=== PATIENT | female | born 1930 | race Caucasian/White ===

== ENCOUNTER 2016-11-20 18:25 | Observation (INO) | payer MEDICARE, OTHER ==
[2016-11-20 18:50] LABS: #Basophils 0.1 thou/uL (0.0-0.2); #Eosinphils 0.1 thou/uL (0.0-0.7); #Lymphocytes 2.5 thou/uL (1.20-3.40); #Monocytes 0.7 thou/uL (0.11-0.59); #Neutrophils 4.1 thou/uL (1.40-6.50); %Basophils 1.2 % (0.0-1.0); %Lymphocytes 33.4 % (21.0-51.0); %Monocytes 9.7 % (0.0-10.0); Hematocrit 32.6 % (36.0-47.0); Red Blood Cell (RBC) Count 3.42 mill/uL (4.20-5.40); White Blood Cell (WBC) Count 7.5 thou/uL (4.8-10.8)
[2016-11-20] MEDS ORDERED: Ondansetron HCl/PF 4 MG/2 ML Vial ONE (18:56)
[2016-11-20 18:57] LABS: Prothrombin Time 13.1 SEC (12.0-14.7)
[2016-11-20 19:11] LABS: Acetaminophen Less than 6.0 mcg/mL (10.0-30.0); Salicylate Less than 8.0 mg/dL (15.0-30.0)
[2016-11-20 19:14] LABS: ALT (SGPT) 13 U/L (8-55); AST (SGOT) 17 U/L (5-34); Alkaline Phosphatase 50 U/L (40-150); Anion Gap 20 mmol/L (10-20); BUN (Urea Nitrogen) 36 mg/dL (9.8-20.1); Bilirubin, Total 0.3 mg/dL (0.2-1.2); CK (CPK) 85 U/L (29-168); Calc. Creatinine Clearance 0 mL/min (70-130); Calcium 8.8 mg/dL (7.8-10.44); Carbon Dioxide 15 mmol/L (23-31); Chloride 109 mmol/L (98-107); Estimated GFR-MDRD 26; Globulin 2.7 g/dL (2.4-3.5); Lipase 65 U/L (8-78); Protein, Total 6.4 g/dL (6.0-8.3)
[2016-11-20 19:19] LABS: Troponin I Less than 0.010 ng/mL (< 0.028)
[2016-11-20] MEDS ORDERED: Lorazepam 2 MG/ML VIAL ONE (19:24)
[2016-11-20 21:10] LABS: Oxyhemoglobin 97.2 % (94.0-97.0); Sodium 141 mmol/L (135-148)
[2016-11-20 21:11] LABS: Mode NC; Modified Allen's Test POSITIVE; Vent NO
--- NOTE | 2016-11-20 21:12 | RAD ---
AP VIEW OF THE CHEST 11/20/16 INDICATION: Syncope and collapse. COMPARISON: None. FINDINGS: There is mild emphysematous change. There is mild cardiomegaly. Pulmonary vasculature is within norm al limits. No pleural effusion or pneumothorax is evident. No acute osseous abnormality is evident. IMPRESSION: Mild cardiomegaly. POS: [facility] [place]
[2016-11-20 21:19] LABS: Anion Gap 16 mmol/L (10-20); BUN (Urea Nitrogen) 32 mg/dL (9.8-20.1); Calc. Creatinine Clearance 0 mL/min (70-130); Calcium 8.4 mg/dL (7.8-10.44); Carbon Dioxide 19 mmol/L (23-31); Chloride 111 mmol/L (98-107); Estimated GFR-MDRD 33
--- NOTE | 2016-11-20 21:30 | PDOC.EVN ---
Event Note - Event Note Event Note: [id number] h&p dictated 1. Syncope 2. Metabolic acidosis, VANESSA 3. H/O HTN 4. H/O DM type 2 plan: see orders
[2016-11-20] MEDS ORDERED: Acetaminophen 325 MG TAB PO PRN (21:33)
[2016-11-20] MEDS ORDERED: Ondansetron HCl/PF 4 MG/2 ML Vial IVP PRN (21:33)
[2016-11-20 21:35] LABS: Bilirubin Negative (Negative); Blood, Urine Negative (Negative); Glucose, Urine (Dipstick) Negative (Negative); Ketone, Urine Trace mg/dL (Negative); Nitrite Negative (Negative); Protein, Urine (Dipstick) Negative (Neg-Trace); Urobilinogen 0.2 mg/dL (0.2-1.0)
[2016-11-20 21:40] LABS: Bacteria/HPF None Seen HPF (None Seen); Hyaline Casts/LPF 4-6 HYALINE CAST LPF (0-3 Hyaline); RBC/HPF 0-3 HPF (0-3)
[2016-11-20] MEDS ORDERED: Dextrose 50% Abboject 50 ML SYRINGE SLOW IVP PRN (21:40)
[2016-11-20] MEDS ORDERED: Dextrose 5% in Water 1,000 ML IV PRN (21:40)
[2016-11-20] MEDS ORDERED: HumaLOG 300 UNITS/3 ML VIAL SC PRN ×2 (21:40)
[2016-11-20 21:53] LABS: Troponin I 0.017 ng/mL (< 0.028)
--- NOTE | 2016-11-20 22:19 | CT ---
NONCONTRAST CT OF THE BRAIN: 11/20/16 INDICATION: 86-year-old female with syncopal episode. Patient was at a football game and had two margaritas with no water. Patient had an episode of vomiting and then got dizzy and passed out. FINDINGS: No acute infarct, hemorrhage, or hydrocephalus is present. There is mild to moderate generalized cer ebral and cerebellar atrophy. There is mild chronic small vessel white matter ischemic change. Septu m pellucidum and third ventricle are midline. Skull and extracranial soft tissues appear within norm al limits. IMPRESSION: No acute intracranial abnormality. POS: [facility]
[2016-11-20] MEDS: Sodium Chloride 0.9% 1,000 ML IV SCH (23:45)
--- NOTE | 2016-11-21 00:20 | HP ---
DATE OF ADMISSION: 11/20/2016 CHIEF COMPLAINT: Syncope. HISTORY OF PRESENT ILLNESS: Patient is an 86-year-old female with past medical history of hypertens ion, diabetes type 2, hyperlipidemia, was at a football game and the patient started feeling dizzine ss. After dizziness, she passed out. Her syncope lasted for approximately one minute. When she re gained consciousness, patient was sweating and had nausea and episode of vomiting. Denies any cheat pian, denies any palpations, denies any fever, denies any chills, had similar episode of syncope ap proximately 20 years back. Denies any dizziness at this time. Denies any headache. Denies any com plaints. Patient did drink two Kristen prior to passing out. PAST MEDICAL HISTORY: As per HPI. PAST SURGICAL HISTORY: Appendectomy, knee replacement. SOCIAL HISTORY: Denies smoking, positive for alcohol, denies any drugs. FAMILY HISTORY: Positive for heart problems. MEDICATIONS: Reviewed. REVIEW OF SYSTEMS: Constitutional: Denies any fever, denies any chills. Eyes: Vision problems. Eras: Denies hearing loss. Neck: Denies any neck pain. Cardiovascular system: S1, S2 present. Regular rate and rhythm. No murmurs, no rubs, no gallops. Respiratory system: No wheezing, no rho nchi. Breath sounds bilaterally. Gastrointestinal: Abdomen is soft, nontender, no guarding, no or ganomegaly, no masses felt. Musculoskeletal: No edema. Cranial nerves system: Positive for synco pe. Genitourinary: Denies dysuria. Integumentary: Denies any rash. All other review of systems are reviewed and are negative. PHYSICAL EXAMINATION: CONSTITUTIONAL/VITAL SIGNS: At the time of H and P performed, blood pressure is 130/80. Afebrile, respiration rate 18, pulse ox 97% on room air. GENERAL: The patient appears comfortable. HEENT: Pupils equal, round, and react. ENT: Normal. Teeth intact. Tongue is moist. NECK: Supple, no JVD. CARDIOVASCULAR: S1, S2 present. Regular rate and rhythm, no murmurs, no rubs, no gallops. RESPIRATORY SYSTEM: No wheezing, no rhonchi. Breath sounds bilaterally. GASTROINTESTINAL: Soft, nontender, no guarding, no organomegaly, no masses felt. MUSCULOSKELETAL: No edema. INTEGUMENTARY: No rashes seen. PSYCHIATRIC: Mood is appropriate at this time. GENITOURINARY: No suprapubic tenderness. LABORATORY DATA: At the time of H and P performed, white count 7.5, hemoglobin 11.1, platelet count is 225. PT 13.1, INR 1.0. D-dimer 0.53. BMP showed pH 7.35, pCO2 of 33, pO2 133, bicarbonate is 18. BMP showed sodium 142, potassium 4, chloride 111, CO2 19, BUN 32, creatinine 1.52. ASSESSMENT AND PLAN: The patient is an 86-year-old female: 1. Syncope. EKG no acute ST changes, we will check cardiac enzymes. We will check, we will place patient on telemetry. We will check 2D echo and carotid ultrasound, and we will monitor the patient closely. 2. Metabolic acidosis plus acute kidney injury, secondary to possible alcohol issues and ketones. We will monitor patient closely. We will start patient on IV fluids, repeat BMP in a.m. 3. History of hypertension. Monitor blood pressures. Continue home blood pressure meds. 4. History of diabetes type 2. Monitor blood sugars. We will do insulin sliding scale. 5. Elevated D-dimer. We will go ahead and check V/Qs to rule out any pulmonary embolism also. The case was discussed in detail with the patient.
[2016-11-21 01:08] LABS: Troponin I Less than 0.010 ng/mL (< 0.028)
[2016-11-21] MEDS: Sodium Chloride 0.9% 1,000 ML IV SCH (03:15)
[2016-11-21 05:12] VITALS: BMI 27.2
[2016-11-21 05:30] LABS: #Eosinphils 0.1 thou/uL (0.0-0.7); #Monocytes 0.7 thou/uL (0.11-0.59); #Neutrophils 3.8 thou/uL (1.40-6.50); %Basophils 0.6 % (0.0-1.0); %Eosinophils 1.7 % (0.0-10.0); %Monocytes 10.8 % (0.0-10.0); Hematocrit 29.8 % (36.0-47.0); Mean Platelet Volume 7.7 fL (7.4-10.4); Red Blood Cell (RBC) Count 3.09 mill/uL (4.20-5.40); White Blood Cell (WBC) Count 6.7 thou/uL (4.8-10.8)
[2016-11-21 05:51] LABS: Anion Gap 12 mmol/L (10-20); BUN (Urea Nitrogen) 33 mg/dL (9.8-20.1); Calc. Creatinine Clearance 41 mL/min (70-130); Calcium 8.5 mg/dL (7.8-10.44); Carbon Dioxide 21 mmol/L (23-31); Chloride 111 mmol/L (98-107); Estimated GFR-MDRD 43
[2016-11-21 08:39] VITALS: BP 118/62; TEMP 97.6
[2016-11-21] MEDS ORDERED: Heparin 5,000 UNITS/ML VIAL SC SCH (09:00)
[2016-11-21] MEDS ORDERED: Sodium Bicarbonate Tab 325 MG TAB PO SCH (09:00)
[2016-11-21] MEDS ORDERED: Famotidine 20 MG TAB PO SCH ×2 (09:00)
--- NOTE | 2016-11-21 09:12 | ULT ---
BILATERAL CAROTID DUPLEX ULTRASOUND: HISTORY: Syncope. TECHNIQUE: Fam-scale ultrasound with color-flow and spectral Doppler imaging of the extracranial carotid arter y systems is performed bilaterally. FINDINGS: There is plaque formation on either side. The peak systolic velocity in the right ICA measures 105 cm per second with an end-diastolic velocit y of 22 cm per second and a systolic ratio of 0.99. The peak systolic velocity in the left ICA measures 184 cm per second with an end-diastolic velocity of 42 cm per second and a systolic ratio of 1.63. Flow in both vertebral arteries remains antegrade. IMPRESSION: Moderate (50%-69%) stenosis involving the left internal carotid artery. POS: [facility]
--- NOTE | 2016-11-21 10:41 | DIS ---
DATE OF ADMISSION: 11/20/2016 DATE OF DISCHARGE: 11/21/2016 City call admission for Brenden from [place]. DISPOSITION: Discharged home. FINAL DIAGNOSES: Syncope; left internal carotid artery stenosis, noncritical; hypertension; diabete s mellitus type 2; chronic kidney disease 3, dyslipidemia. DISCHARGE MEDICATIONS: Zocor 40 mg a day, Repaglinide 1 mg twice a day, levothyroxine 25 mg a day, Avapro 300 mg a day, Januvia 100 mg a day, Lasix 20 mg a day, aspirin 325 mg a day. PENDING AT THE TIME OF DISCHARGE: Nothing. CODE STATUS: FULL. ALLERGIES: No known drug allergies. HOSPITAL COURSE: Patient was at a football game, was hot. She says she has had renny, she got dizzy, she fainted, she was brought to the hospital. CBC was unremarkable, 7.5 white count, 11.1 he moglobin, 225,000 platelets. Comprehensive metabolic profile showed a mild acidosis of 15 which wit h fluids keep up to 19 on the CO2. She had a creatinine of 1.85, which came up to 1.52 with fluids. Liver function tests normal. Sodium and potassium normal. Plasma alcohol 21. Because of mildly elevated D-dimer, she was scheduled for a VQ scan. She refused it. Interviewing the patient, she f eels fine. Vital signs are stable. She has got 98% sat on room air. She has no tachycardia. She has no chest discomfort, shortness of breath. Agree with her that the VQ scan is not indicated. Br ain CT revealed no abnormality. The carotid ultrasound did reveal a 50%-69% stenosis on the left, n oncritical. I have suggested that she increase her aspirin from 81 mg a day to 325. I have asked h er to see her primary care provider in 1 week for followup. No consultations were obtained. No pro cedures were obtained. As I mentioned before, code status is full.
== END 2016-11-21 11:44 | disposition home or self-care (01) ==
LOC: ERS 18:25 → 2NO 21:10
PROVIDERS: ADMIT Internal Medicine; ATTEND Internal Medicine
DX: R55 Syncope and collapse (principal); E11.22 Type 2 diabetes mellitus with diabetic chronic kidney disease; I12.9 Hypertensive chronic kidney disease with stage 1 through stage 4 chronic kidney disease, or unspecified chronic kidney disease; N18.3 Chronic kidney disease, stage 3 (moderate); E78.5 Hyperlipidemia, unspecified; I65.22 Occlusion and stenosis of left carotid artery; Z79.899 Other long term (current) drug therapy; Z90.49 Acquired absence of other specified parts of digestive tract; Z96.659 Presence of unspecified artificial knee joint
CPT/HCPCS: 70450; 71010; 80048 ×2; 80053; 80307; 82550; 82553; 82805; 83690; 83735; 83880; 84484 ×3; 85025 ×2; 85379; 85610; 85730; 93005; 93880; 94760; 96361 ×2; 96374; 96375; 99285; G0378; 36415; 81003; 81015; A4216; J1644; J2060; J2405

== ENCOUNTER 2018-07-26 09:48 | Emergency (ER) | payer MEDICARE ==
--- NOTE | 2018-07-26 10:34 | RAD ---
XR Pelvis AP STANDARD HISTORY: Fall, left hip pain FINDINGS: No fracture or dislocation is identified.
--- NOTE | 2018-07-26 10:35 | RAD ---
XR Hip Lt 2-3 View HISTORY: Fall, left hip pain FINDINGS: No fracture or dislocation is identified.
== END 2018-07-26 10:49 | disposition home or self-care (01) ==
LOC: SCSER 09:48
DX: M25.552 Pain in left hip (principal); E11.9 Type 2 diabetes mellitus without complications; E78.5 Hyperlipidemia, unspecified; I10 Essential (primary) hypertension; Z79.899 Other long term (current) drug therapy
CPT/HCPCS: 72170

== ENCOUNTER 2018-07-28 10:43 | Outpatient (CLI) | payer MEDICARE, OTHER ==
--- NOTE | 2018-07-28 12:14 | RAD ---
Exam: 2 views of the lumbosacral spine HISTORY: Low back pain and lumbar radiculopathy COMPARISON: None FINDINGS: 3 views of the lumbosacral spine shows moderate scoliotic curvature of the lumbar spine. In tervertebral discs are narrowed and moderate osteophytes are seen throughout the lumbar spine. No subluxation is seen. Moderate posterior facet arthrosis is seen in the lower lumbosacral spine. The sacroiliac joints are unremarkable. IMPRESSION: Moderate degenerative changes and scoliosis of the lumbar spine
--- NOTE | 2018-07-28 14:16 | MRI ---
LUMBAR SPINE MRI WITHOUT CONTRAST: HISTORY: Lumbar radiculopathy. Left hip pain. Back pain. FINDINGS: Pleural T2 weighted images demonstrate a leftward curvature of the lumbar spine with apex at the L2-L 3 level. There are multiple hyperintensities in the left and right renal cortex which may represent parapelvic cysts. There is appropriate T1 marrow signal intensity of the lumbar vertebrae. Vertebral body height is ma intained. There is no fracture. There is type I and type II Modic change along the right aspect of the L2-L3 disk space level. There are degenerative changes involving the left aspect of the T10-T11 disk space with type I and II Modic changes. Conus medullaris terminates at approximately the mid L1 level. T12-L1: Generalized disk bulge with mild central canal stenosis. Mild bilateral neural foraminal na rrowing. L1-L2: Desiccation with mild loss of disk space height. No significant central canal stenosis. Mil d right and moderate left foraminal narrowing. L2-L3: Desiccation with moderate loss of disk space height. Generalized disk bulge causes mild narr owing of the thecal sac. There is narrowing of the right subarticular zone secondary to facet hypert rophy and disk material. There is mass effect with partial obscuration of the traversing right L3 ne rve root. Moderate right and mild left foraminal narrowing. L3-L4: Desiccation with mild to moderate loss of disk space height. Generalized disk bulge, ligamen kg flavum thickening, and facet hypertrophy result in moderate central canal stenosis. Moderate to severe right and moderate neural foraminal narrowing. The left neural foramen is patent. L4-L5: Desiccation with moderate loss of disk space height. Broad-based disk bulge, ligamentum flav um thickening, and facet hypertrophy result in moderate central canal stenosis. There is narrowing o f both subarticular zones, left greater than right. Partial obscuration of traversing right L5 nerve root. Near-complete obscuration of the traversing L5 nerve root. Moderate right and left foraminal narrowing. L5-S1: Severe loss of disk space height. Generalized disk bulge does not cause any significant cent ral canal stenosis. There is left greater than right facet hypertrophy. Mass effect and partial obs curation of the traversing left S1 nerve root. Mild right and severe left foraminal narrowing. IMPRESSION: 1. Levoscoliosis of the lumbar spine as above. 2. Moderate central canal stenosis at L4-L5. 3. Narrowing of the subarticular zone at L4-L5 and L5-S1 as described above. 4. Multilevel neural foraminal narrowing as described. There is severe left foraminal narrowing wit h obscuration of the foraminal left L5 nerve root predominantly due to disk material. POS: [facility]
== END 2018-07-28 10:44 | disposition home or self-care (01) ==
LOC: MRI 10:43
PROVIDERS: ATTEND Neurological Surgery
DX: M47.26 Other spondylosis with radiculopathy, lumbar region (principal); M41.9 Scoliosis, unspecified; M48.061 Spinal stenosis, lumbar region without neurogenic claudication
CPT/HCPCS: 72100; 72148

== ENCOUNTER 2022-01-29 08:37 | Emergency (ER) | payer MEDICARE ==
[2022-01-29 09:36] LABS: #Eosinphils 0.2 thou/uL (0.0-0.7); #Monocytes 0.6 thou/uL (0.11-0.59); #Neutrophils 4.9 thou/uL (1.40-6.50); %Basophils 0.2 % (0.0-1.0); %Eosinophils 2.2 % (0.0-10.0); %Lymphocytes 25.6 % (21.0-51.0); %Neutrophils 64.1 % (42.0-75.0); Hemoglobin 10.3 g/dL (12.0-16.0); Mean Corpuscular HGB CONC 32.8 g/dL (32.0-36.0); Mean Corpuscular Hemoglobin 31.3 pg (27.0-31.0); Mean Corpuscular Volume 95.4 fl (78.0-98.0); Mean Platelet Volume 7.7 fL (7.4-10.4); Platelet Count 219 10x3/uL (130-400); RBC Distribution Width 13.5 % (11.5-14.5); Red Blood Cell (RBC) Count 3.29 mill/uL (4.20-5.40); White Blood Cell (WBC) Count 7.7 10x3/uL (4.8-10.8)
[2022-01-29 09:59] LABS: ALT (SGPT) 12 U/L (8-55); AST (SGOT) 19 U/L (5-34); Albumin 3.6 g/dL (3.4-4.8); Alkaline Phosphatase 68 U/L (40-110); Anion Gap 10 mmol/L (10-20); BUN (Urea Nitrogen) 21 mg/dL (9.8-20.1); Bilirubin, Total 0.5 mg/dL (0.2-1.2); Calc. Creatinine Clearance 0 mL/min (70-130); Carbon Dioxide 23 mmol/L (23-31); Chloride 107 mmol/L (98-107); Estimated GFR 54; Globulin 2.9 g/dL (2.4-3.5); Glucose 107 mg/dL (83-110); Potassium 4.2 mmol/L (3.5-5.1); Protein, Total 6.5 g/dL (5.8-8.1); Sodium 136 mmol/L (136-145)
[2022-01-29] MEDS ORDERED: Acetaminophen 325 MG TAB ONE (10:06)
[2022-01-29] MEDS ORDERED: Methyl Salicylate/Menthol 85 GM TUBE TOP SCH (10:30)
[2022-01-29 10:39] LABS: Bilirubin Negative (Negative); Blood, Urine Negative (Negative); Clarity Clear (Clear); Glucose, Urine (Dipstick) Normal (Negative); Ketone, Urine Negative (Negative); Leukocyte Negative Leu/uL (Negative); Nitrite Negative (Negative); Protein, Urine (Dipstick) Negative (Neg-Trace); Specific Gravity, Urine 1.018 (1.002-1.036); Urobilinogen Normal mg/dL (Less than 2)
== END 2022-01-29 11:45 ==
LOC: ERS 08:37
DX: S72.001A Fracture of unspecified part of neck of right femur, initial encounter for closed fracture (principal); E11.9 Type 2 diabetes mellitus without complications; I10 Essential (primary) hypertension; E78.00 Pure hypercholesterolemia, unspecified; W19.XXXA Unspecified fall, initial encounter
CPT/HCPCS: 36415; 70450; 80053; 81003; 85025; 93005; 94760

== ENCOUNTER 2022-03-26 12:09 | Emergency (ER) | payer MEDICARE ==
[2022-03-26 13:08] LABS: #Eosinphils 0.1 thou/uL (0.0-0.7); #Lymphocytes 1.5 thou/uL (1.20-3.40); #Monocytes 0.6 thou/uL (0.11-0.59); #Neutrophils 6.3 thou/uL (1.40-6.50); %Basophils 0.4 % (0.0-1.0); %Eosinophils 1.2 % (0.0-10.0); %Lymphocytes 17.8 % (21.0-51.0); %Monocytes 7.3 % (0.0-10.0); %Neutrophils 73.2 % (42.0-75.0); Mean Corpuscular HGB CONC 33.3 g/dL (32.0-36.0); Mean Corpuscular Hemoglobin 32.4 pg (27.0-31.0); Mean Corpuscular Volume 97.4 fl (78.0-98.0); Mean Platelet Volume 7.3 fL (7.4-10.4); Platelet Count 244 10x3/uL (130-400); RBC Distribution Width 13.1 % (11.5-14.5); Red Blood Cell (RBC) Count 3.07 mill/uL (4.20-5.40); White Blood Cell (WBC) Count 8.5 10x3/uL (4.8-10.8)
[2022-03-26 13:36] LABS: ALT (SGPT) 15 U/L (8-55); AST (SGOT) 19 U/L (5-34); Albumin 3.5 g/dL (3.4-4.8); Alkaline Phosphatase 76 U/L (40-110); Anion Gap 9 mmol/L (10-20); BUN (Urea Nitrogen) 21 mg/dL (9.8-20.1); Bilirubin, Total 0.3 mg/dL (0.2-1.2); Calc. Creatinine Clearance 0 mL/min (70-130); Calcium 9.1 mg/dL (7.8-10.44); Carbon Dioxide 28 mmol/L (23-31); Chloride 105 mmol/L (98-107); Estimated GFR 45; Globulin 3.1 g/dL (2.4-3.5); Glucose 136 mg/dL (83-110); Protein, Total 6.6 g/dL (5.8-8.1); Sodium 138 mmol/L (136-145)
== END 2022-03-26 15:45 | disposition home or self-care (01) ==
LOC: ERS 12:09
DX: R55 Syncope and collapse (principal); E11.9 Type 2 diabetes mellitus without complications; E78.00 Pure hypercholesterolemia, unspecified; I10 Essential (primary) hypertension
CPT/HCPCS: 36415; 70450; 71045; 80053; 84484; 85025; 93005

== ENCOUNTER 2022-04-07 01:19 | Emergency (ER) | payer MEDICARE ==
[2022-04-08 00:43] LABS: #Eosinphils 0.1 thou/uL (0.0-0.7); #Lymphocytes 0.9 thou/uL (1.20-3.40); #Monocytes 0.3 thou/uL (0.11-0.59); #Neutrophils 2.3 thou/uL (1.40-6.50); %Basophils 0.5 % (0.0-1.0); %Eosinophils 2.5 % (0.0-10.0); %Lymphocytes 24.2 % (21.0-51.0); %Monocytes 7.6 % (0.0-10.0); %Neutrophils 65.2 % (42.0-75.0); Hemoglobin 16.5 g/dL (12.0-16.0); Mean Corpuscular HGB CONC 32.6 g/dL (32.0-36.0); Mean Corpuscular Hemoglobin 32.1 pg (27.0-31.0); Mean Corpuscular Volume 98.3 fl (78.0-98.0); Mean Platelet Volume 7.5 fL (7.4-10.4); Platelet Count 124 10x3/uL (130-400); RBC Distribution Width 13.3 % (11.5-14.5); Red Blood Cell (RBC) Count 5.14 mill/uL (4.20-5.40); White Blood Cell (WBC) Count 3.5 10x3/uL (4.8-10.8)
[2022-04-08 00:51] LABS: ALT (SGPT) 15 U/L (8-55); AST (SGOT) 26 U/L (5-34); Albumin 3.8 g/dL (3.4-4.8); Alkaline Phosphatase 78 U/L (40-110); Anion Gap 12 mmol/L (10-20); BUN (Urea Nitrogen) 21 mg/dL (9.8-20.1); Bilirubin, Total 0.3 mg/dL (0.2-1.2); Calc. Creatinine Clearance 0 mL/min (70-130); Calcium 9.9 mg/dL (7.8-10.44); Carbon Dioxide 25 mmol/L (23-31); Chloride 104 mmol/L (98-107); Estimated GFR 44; Globulin 3.3 g/dL (2.4-3.5); Glucose 92 mg/dL (83-110); Potassium 3.9 mmol/L (3.5-5.1); Protein, Total 7.1 g/dL (5.8-8.1); Sodium 137 mmol/L (136-145)
[2022-04-08 07:21] LABS: Bilirubin Negative (Negative); Blood, Urine Negative (Negative); Clarity Clear (Clear); Glucose, Urine (Dipstick) Negative (Negative); Ketone, Urine Negative (Negative); Leukocyte Negative (Negative); Nitrite Negative (Negative); Protein, Urine (Dipstick) Negative (Neg-Trace); Specific Gravity, Urine Less/Equal 1.005 (1.005-1.030); Urobilinogen 0.2 mg/dL (Less than 2); pH, Urine 6.5 (5.0-9.0)
== END 2022-04-08 03:52 | disposition home or self-care (01) ==
LOC: ERS 23:28
DX: E11.65 Type 2 diabetes mellitus with hyperglycemia (principal); D72.819 Decreased white blood cell count, unspecified; E78.00 Pure hypercholesterolemia, unspecified; I10 Essential (primary) hypertension
CPT/HCPCS: 36415; 36416; 71045; 80053; 81003; 85025; 87086; 93005

== ENCOUNTER 2022-04-11 19:38 | Observation (INO) | payer MEDICARE ==
[2022-04-11 20:32] LABS: #Eosinphils 0.2 thou/uL (0.0-0.7); #Lymphocytes 1.7 thou/uL (1.20-3.40); #Neutrophils 6.8 thou/uL (1.40-6.50); %Basophils 0.2 % (0.0-1.0); %Eosinophils 1.7 % (0.0-10.0); %Lymphocytes 17.9 % (21.0-51.0); %Neutrophils 70.2 % (42.0-75.0); Hemoglobin 10.2 g/dL (12.0-16.0); Mean Corpuscular HGB CONC 33.8 g/dL (32.0-36.0); Mean Corpuscular Hemoglobin 32.7 pg (27.0-31.0); Mean Corpuscular Volume 96.5 fl (78.0-98.0); Mean Platelet Volume 7.4 fL (7.4-10.4); Platelet Count 223 10x3/uL (130-400); RBC Distribution Width 12.7 % (11.5-14.5); Red Blood Cell (RBC) Count 3.13 mill/uL (4.20-5.40); White Blood Cell (WBC) Count 9.7 10x3/uL (4.8-10.8)
[2022-04-11 20:52] LABS: ALT (SGPT) 14 U/L (8-55); AST (SGOT) 24 U/L (5-34); Albumin 3.8 g/dL (3.4-4.8); Alkaline Phosphatase 79 U/L (40-110); Anion Gap 11 mmol/L (10-20); BUN (Urea Nitrogen) 23 mg/dL (9.8-20.1); Bilirubin, Total 0.3 mg/dL (0.2-1.2); Calc. Creatinine Clearance 0 mL/min (70-130); Calcium 9.1 mg/dL (7.8-10.44); Carbon Dioxide 24 mmol/L (23-31); Chloride 107 mmol/L (98-107); Estimated GFR 39; Globulin 2.6 g/dL (2.4-3.5); Glucose 75 mg/dL (83-110); Potassium 4.1 mmol/L (3.5-5.1); Protein, Total 6.4 g/dL (5.8-8.1); Sodium 138 mmol/L (136-145)
[2022-04-11 21:01] LABS: Bilirubin Negative (Negative); Blood, Urine Negative (Negative); Clarity Clear (Clear); Glucose, Urine (Dipstick) Normal (Negative); Ketone, Urine Negative (Negative); Leukocyte Negative Leu/uL (Negative); Nitrite Negative (Negative); Protein, Urine (Dipstick) Negative (Neg-Trace); Specific Gravity, Urine 1.011 (1.002-1.036); Urobilinogen Normal mg/dL (Less than 2); pH, Urine 5.5 (5.0-9.0)
[2022-04-11] MEDS ORDERED: Senokot S 8.6-50 MG TAB PO PRN (22:23)
[2022-04-11] MEDS ORDERED: Bisacodyl 10 MG SUPP PR PRN (22:23)
[2022-04-11] MEDS ORDERED: Bisacodyl 5 MG TAB PO PRN (22:23)
[2022-04-11] MEDS ORDERED: Dextrose 5% in Water 1,000 ML IV PRN (22:23)
[2022-04-11] MEDS ORDERED: Dextrose 50% Abboject 50 ML SYRINGE SLOW IVP PRN (22:23)
[2022-04-11] MEDS ORDERED: Ondansetron PF 4 MG/2 ML Vial IVP PRN (22:23)
[2022-04-11] MEDS ORDERED: Acetaminophen 325 MG TAB PO PRN (22:23)
[2022-04-11] MEDS: Dextrose 5 % And 0.9 % NaCl 1,000 ML IV SCH (23:51)
[2022-04-11 23:54] VITALS: BMI 25.3
[2022-04-12] MEDS ORDERED: Lorazepam 0.5 MG TAB PO PRN (04:36)
[2022-04-12] MEDS ORDERED: Acetaminophen/Codeine 30-300mg Tablet PO PRN (04:36)
[2022-04-12 06:38] LABS: #Eosinphils 0.1 thou/uL (0.0-0.7); #Lymphocytes 1.6 thou/uL (1.20-3.40); #Monocytes 0.6 thou/uL (0.11-0.59); #Neutrophils 3.7 thou/uL (1.40-6.50); %Eosinophils 2.3 % (0.0-10.0); %Lymphocytes 26.6 % (21.0-51.0); %Neutrophils 61.1 % (42.0-75.0); Hemoglobin 9.9 g/dL (12.0-16.0); Mean Corpuscular HGB CONC 33.5 g/dL (32.0-36.0); Mean Corpuscular Hemoglobin 32.4 pg (27.0-31.0); Mean Corpuscular Volume 96.7 fl (78.0-98.0); Mean Platelet Volume 7.5 fL (7.4-10.4); Platelet Count 211 10x3/uL (130-400); RBC Distribution Width 12.6 % (11.5-14.5); Red Blood Cell (RBC) Count 3.05 mill/uL (4.20-5.40)
[2022-04-12 07:00] LABS: ALT (SGPT) 13 U/L (8-55); AST (SGOT) 20 U/L (5-34); Albumin 3.3 g/dL (3.4-4.8); Alkaline Phosphatase 65 U/L (40-110); Anion Gap 10 mmol/L (10-20); BUN (Urea Nitrogen) 17 mg/dL (9.8-20.1); Bilirubin, Direct 0.1 mg/dL (0.1-0.3); Bilirubin, Total 0.3 mg/dL (0.2-1.2); Calc. Creatinine Clearance 43 mL/min (70-130); Calcium 8.9 mg/dL (7.8-10.44); Carbon Dioxide 23 mmol/L (23-31); Chloride 109 mmol/L (98-107); Estimated GFR 57; Glucose 105 mg/dL (83-110); Magnesium 1.9 mg/dL (1.6-2.6); Potassium 4.2 mmol/L (3.5-5.1); Sodium 138 mmol/L (136-145)
[2022-04-12] MEDS ORDERED: Folic Acid 1 MG TAB PO SCH (09:00)
[2022-04-12] MEDS ORDERED: Furosemide 20 MG TAB PO SCH (09:00)
[2022-04-12] MEDS ORDERED: (Mecobalamin [B12 Active] 1,000 MCG Tab.Chew) PO SCH (09:00)
[2022-04-12] MEDS ORDERED: Thiamine 100 MG TAB PO SCH (09:00)
[2022-04-12] MEDS ORDERED: Losartan 25 MG TAB PO SCH (09:00)
[2022-04-12] MEDS: Dextrose 5 % And 0.9 % NaCl 1,000 ML IV SCH (09:45)
[2022-04-12 12:13] VITALS: BP 146/97; TEMP 98.1
[2022-04-12] MEDS ORDERED: Atorvastatin Calcium 20 MG TAB PO SCH (21:00)
[2022-04-12] MEDS ORDERED: Melatonin 3 MG TAB PO SCH (21:00)
[2022-04-12] MEDS ORDERED: QUEtiapine 25 MG TAB PO SCH (21:00)
[2022-04-12] MEDS ORDERED: Sertraline 100 MG TAB PO SCH (21:00)
== END 2022-04-12 12:30 | disposition home or self-care (01) ==
LOC: ERS 19:38 → T4-B 22:11 → ERS 23:02
PROVIDERS: ADMIT Hospitalist; ATTEND Hospitalist
DX: E11.649 Type 2 diabetes mellitus with hypoglycemia without coma (principal); F03.90 Unspecified dementia, unspecified severity, without behavioral disturbance, psychotic disturbance, mood disturbance, and anxiety; I12.9 Hypertensive chronic kidney disease with stage 1 through stage 4 chronic kidney disease, or unspecified chronic kidney disease; E11.22 Type 2 diabetes mellitus with diabetic chronic kidney disease; N18.32 Chronic kidney disease, stage 3b; G93.41 Metabolic encephalopathy; E78.00 Pure hypercholesterolemia, unspecified; Z79.84 Long term (current) use of oral hypoglycemic drugs; Z79.899 Other long term (current) drug therapy; Z20.822 Contact with and (suspected) exposure to COVID-19
CPT/HCPCS: 71045; 80048; 80076; 81003; 82962 ×2; 83735; 83880; 84443; 84484; 85025; 93005; 97530; U0003; U0005; 36415; 36416; 80053; 96372; G0378; J1650; J7042

== ENCOUNTER 2022-05-05 07:37 | Inpatient (IN) | payer MEDICARE ==
[2022-05-05 08:22] LABS: #Eosinphils 0.2 thou/uL (0.0-0.7); #Lymphocytes 1.6 thou/uL (1.20-3.40); #Monocytes 0.6 thou/uL (0.11-0.59); #Neutrophils 6.6 thou/uL (1.40-6.50); %Basophils 0.1 % (0.0-1.0); %Eosinophils 1.9 % (0.0-10.0); %Lymphocytes 17.8 % (21.0-51.0); %Monocytes 6.8 % (0.0-10.0); %Neutrophils 73.5 % (42.0-75.0); Hemoglobin 11.1 g/dL (12.0-16.0); Mean Corpuscular HGB CONC 32.2 g/dL (32.0-36.0); Mean Corpuscular Volume 96.3 fl (78.0-98.0); Mean Platelet Volume 7.6 fL (7.4-10.4); Platelet Count 231 10x3/uL (130-400); RBC Distribution Width 12.8 % (11.5-14.5); Red Blood Cell (RBC) Count 3.58 mill/uL (4.20-5.40); White Blood Cell (WBC) Count 8.9 10x3/uL (4.8-10.8)
[2022-05-05 08:41] LABS: ALT (SGPT) 15 U/L (8-55); AST (SGOT) 25 U/L (5-34); Albumin 3.7 g/dL (3.4-4.8); Alkaline Phosphatase 73 U/L (40-110); Anion Gap 14 mmol/L (10-20); BUN (Urea Nitrogen) 16 mg/dL (9.8-20.1); Bilirubin, Total 0.4 mg/dL (0.2-1.2); Calc. Creatinine Clearance 0 mL/min (70-130); Calcium 9.8 mg/dL (7.8-10.44); Carbon Dioxide 23 mmol/L (23-31); Chloride 106 mmol/L (98-107); Estimated GFR 54; Globulin 3.4 g/dL (2.4-3.5); Glucose 154 mg/dL (83-110); Lipase 56 U/L (8-78); Potassium 4.2 mmol/L (3.5-5.1); Protein, Total 7.1 g/dL (5.8-8.1); Sodium 139 mmol/L (136-145)
[2022-05-05] MEDS ORDERED: Acetaminophen 325 MG TAB ONE (08:53)
[2022-05-05] MEDS ORDERED: Fentanyl 100 MCG/2 ML VIAL ONE (09:22)
[2022-05-05 09:37] LABS: CK (CPK) 218 U/L (29-168)
[2022-05-05] MEDS ORDERED: Ondansetron PF 4 MG/2 ML Vial IVP PRN (11:48)
[2022-05-05] MEDS ORDERED: TETANUS, DIPHTHERIA TOX,ADULT (TDVAX) 0.5 ML VIAL IM ONE (11:48)
[2022-05-05] MEDS ORDERED: Morphine 2 MG/ML VIAL SLOW IVP PRN (11:48)
[2022-05-05] MEDS ORDERED: hydrALAZINE 20 MG/ML VIAL SLOW IVP PRN (11:48)
[2022-05-05] MEDS ORDERED: Dextrose 5% in Water 1,000 ML IV PRN (11:48)
[2022-05-05] MEDS ORDERED: Dextrose 50% Abboject 50 ML SYRINGE SLOW IVP PRN (11:48)
[2022-05-05] MEDS ORDERED: traMADol HCl 50 MG TAB PO SCH (12:00)
[2022-05-05] MEDS ORDERED: Acetaminophen 500 MG TAB PO SCH (12:00)
[2022-05-05] MEDS ORDERED: Acetaminophen 500 MG TAB ONE (15:41)
[2022-05-05] MEDS ORDERED: traMADol HCl 50 MG TAB ONE (15:42)
[2022-05-05] MEDS: traMADol HCl 50 MG TAB PO PRN (15:45)
[2022-05-05] MEDS: Acetaminophen 500 MG TAB PO SCH ×2 (15:45→21:05)
[2022-05-05 16:33] LABS: SARS-CoV-2 NAA Rapid Test Not Detected (NotDetected)
[2022-05-05] MEDS: Gabapentin 100 MG CAP PO SCH ×2 (19:11→21:05)
[2022-05-05] MEDS: traMADol HCl 50 MG TAB PO SCH ×2 (19:11→21:06)
[2022-05-05 19:43] VITALS: BMI 22.1
[2022-05-05] MEDS ORDERED: Famotidine 20 MG TAB PO SCH (21:00)
[2022-05-05] MEDS: Senokot S 8.6-50 MG TAB PO SCH (21:05)
[2022-05-05] MEDS: Donepezil HCl 5 MG TAB PO SCH (21:05)
[2022-05-05] MEDS: Sertraline 25 MG TAB PO SCH (21:05)
[2022-05-05] MEDS: Melatonin 3 MG TAB PO SCH (21:05)
[2022-05-05] MEDS: QUEtiapine 25 MG TAB PO SCH (21:05)
[2022-05-06] MEDS: Acetaminophen 500 MG TAB PO SCH ×4 (04:53→21:12)
[2022-05-06] MEDS: traMADol HCl 50 MG TAB PO SCH ×4 (04:53→21:12)
[2022-05-06 06:26] LABS: #Eosinphils 0.2 thou/uL (0.0-0.7); #Lymphocytes 1.6 thou/uL (1.20-3.40); #Monocytes 0.5 thou/uL (0.11-0.59); #Neutrophils 3.6 thou/uL (1.40-6.50); %Basophils 0.3 % (0.0-1.0); %Eosinophils 2.6 % (0.0-10.0); %Lymphocytes 27.3 % (21.0-51.0); %Monocytes 8.7 % (0.0-10.0); %Neutrophils 61.1 % (42.0-75.0); Hemoglobin 9.9 g/dL (12.0-16.0); Mean Corpuscular HGB CONC 33.6 g/dL (32.0-36.0); Mean Corpuscular Hemoglobin 32.3 pg (27.0-31.0); Mean Corpuscular Volume 96.2 fl (78.0-98.0); Mean Platelet Volume 8.5 fL (7.4-10.4); Platelet Count 178 10x3/uL (130-400); RBC Distribution Width 12.7 % (11.5-14.5); Red Blood Cell (RBC) Count 3.06 mill/uL (4.20-5.40)
[2022-05-06 06:50] LABS: Anion Gap 14 mmol/L (10-20); BUN (Urea Nitrogen) 12 mg/dL (9.8-20.1); Calc. Creatinine Clearance 42 mL/min (70-130); Calcium 8.6 mg/dL (7.8-10.44); Carbon Dioxide 19 mmol/L (23-31); Chloride 108 mmol/L (98-107); Estimated GFR 69; Glucose 98 mg/dL (83-110); Magnesium 1.8 mg/dL (1.6-2.6); Phosphorus 2.8 mg/dL (2.3-4.7); Potassium 4.2 mmol/L (3.5-5.1); Sodium 137 mmol/L (136-145)
[2022-05-06] MEDS ORDERED: PHOS-NAK 1 PKT PACK PO SCH (08:00)
[2022-05-06] MEDS ORDERED: Magnesium 2 GM/50 ML(in water) 2 GM in Premix Bag 1 BAG IVPB SCH (08:00)
[2022-05-06] MEDS: QUEtiapine 25 MG TAB PO SCH ×3 (08:21→21:11)
[2022-05-06] MEDS: Thiamine 100 MG TAB PO SCH (08:21)
[2022-05-06] MEDS: Polyethylene Glycol 3350 17 GM Packet PO SCH (08:21)
[2022-05-06] MEDS: Gabapentin 100 MG CAP PO SCH ×3 (08:21→21:11)
[2022-05-06] MEDS: Senokot S 8.6-50 MG TAB PO SCH ×2 (08:21→21:11)
[2022-05-06] MEDS: Folic Acid 1 MG TAB PO SCH (08:21)
[2022-05-06] MEDS: traMADol HCl 50 MG TAB PO PRN (12:32)
[2022-05-06] MEDS ORDERED: Lorazepam 1 MG TAB PO PRN (12:55)
[2022-05-06] MEDS: Atorvastatin Calcium 20 MG TAB PO SCH (18:02)
[2022-05-06] MEDS: Donepezil HCl 5 MG TAB PO SCH (21:11)
[2022-05-06] MEDS: Famotidine 20 MG TAB PO SCH (21:11)
[2022-05-06] MEDS: Melatonin 3 MG TAB PO SCH (21:11)
[2022-05-06] MEDS: Sertraline 25 MG TAB PO SCH (21:12)
[2022-05-07] MEDS: Acetaminophen 500 MG TAB PO SCH ×2 (03:42→04:10)
[2022-05-07] MEDS: traMADol HCl 50 MG TAB PO SCH ×2 (03:42→08:45)
[2022-05-07] MEDS: Famotidine 20 MG TAB PO SCH ×2 (04:09→20:11)
[2022-05-07] MEDS: Gabapentin 100 MG CAP PO SCH ×5 (04:09→20:11)
[2022-05-07] MEDS: Donepezil HCl 5 MG TAB PO SCH ×2 (04:09→20:01)
[2022-05-07] MEDS: Melatonin 3 MG TAB PO SCH ×2 (04:10→20:00)
[2022-05-07] MEDS: Sertraline 25 MG TAB PO SCH ×2 (04:10→20:01)
[2022-05-07] MEDS: QUEtiapine 25 MG TAB PO SCH ×3 (04:10→20:01)
[2022-05-07 06:04] LABS: #Eosinphils 0.1 thou/uL (0.0-0.7); #Lymphocytes 1.3 thou/uL (1.20-3.40); #Neutrophils 6.4 thou/uL (1.40-6.50); %Basophils 0.4 % (0.0-1.0); %Eosinophils 1.4 % (0.0-10.0); %Lymphocytes 14.9 % (21.0-51.0); %Neutrophils 72.4 % (42.0-75.0); Hemoglobin 9.9 g/dL (12.0-16.0); Mean Corpuscular HGB CONC 33.4 g/dL (32.0-36.0); Mean Corpuscular Hemoglobin 31.9 pg (27.0-31.0); Mean Corpuscular Volume 95.6 fl (78.0-98.0); Mean Platelet Volume 7.7 fL (7.4-10.4); Platelet Count 192 10x3/uL (130-400); RBC Distribution Width 12.6 % (11.5-14.5); Red Blood Cell (RBC) Count 3.09 mill/uL (4.20-5.40); White Blood Cell (WBC) Count 8.8 10x3/uL (4.8-10.8)
[2022-05-07 06:25] LABS: Anion Gap 11 mmol/L (10-20); BUN (Urea Nitrogen) 13 mg/dL (9.8-20.1); Calc. Creatinine Clearance 38 mL/min (70-130); Calcium 8.7 mg/dL (7.8-10.44); Carbon Dioxide 22 mmol/L (23-31); Chloride 106 mmol/L (98-107); Estimated GFR 62; Glucose 158 mg/dL (83-110); Magnesium 1.7 mg/dL (1.6-2.6); Phosphorus 2.4 mg/dL (2.3-4.7); Potassium 3.8 mmol/L (3.5-5.1); Sodium 135 mmol/L (136-145)
[2022-05-07] MEDS: Polyethylene Glycol 3350 17 GM Packet PO SCH (08:43)
[2022-05-07] MEDS: Thiamine 100 MG TAB PO SCH (08:43)
[2022-05-07] MEDS: Senokot S 8.6-50 MG TAB PO SCH ×2 (08:43→20:11)
[2022-05-07] MEDS: Folic Acid 1 MG TAB PO SCH (08:45)
[2022-05-07] MEDS: Losartan 25 MG TAB PO SCH (08:47)
[2022-05-07] MEDS ORDERED: Ibuprofen 200 MG TAB PO PRN (08:53)
[2022-05-07] MEDS: Acetaminophen 325 MG TAB PO SCH ×3 (14:50→20:00)
[2022-05-07] MEDS: Acetaminophen/Codeine 30-300mg Tablet PO SCH ×2 (18:35→23:08)
[2022-05-07] MEDS: Atorvastatin Calcium 20 MG TAB PO SCH (18:37)
[2022-05-08] MEDS: Acetaminophen 325 MG TAB PO SCH ×6 (03:11→19:42)
[2022-05-08] MEDS: Acetaminophen/Codeine 30-300mg Tablet PO SCH ×4 (05:52→23:02)
[2022-05-08 06:12] LABS: #Eosinphils 0.2 thou/uL (0.0-0.7); #Monocytes 0.8 thou/uL (0.11-0.59); #Neutrophils 4.1 thou/uL (1.40-6.50); %Basophils 0.5 % (0.0-1.0); %Eosinophils 2.9 % (0.0-10.0); %Lymphocytes 27.9 % (21.0-51.0); %Monocytes 10.9 % (0.0-10.0); %Neutrophils 57.8 % (42.0-75.0); Hemoglobin 9.6 g/dL (12.0-16.0); Mean Corpuscular Hemoglobin 31.9 pg (27.0-31.0); Mean Corpuscular Volume 96.7 fl (78.0-98.0); Mean Platelet Volume 7.6 fL (7.4-10.4); Platelet Count 181 10x3/uL (130-400); RBC Distribution Width 12.5 % (11.5-14.5); Red Blood Cell (RBC) Count 3.01 mill/uL (4.20-5.40)
[2022-05-08 06:34] LABS: Anion Gap 9 mmol/L (10-20); BUN (Urea Nitrogen) 15 mg/dL (9.8-20.1); Calc. Creatinine Clearance 40 mL/min (70-130); Calcium 8.8 mg/dL (7.8-10.44); Carbon Dioxide 24 mmol/L (23-31); Chloride 108 mmol/L (98-107); Estimated GFR 65; Glucose 123 mg/dL (83-110); Magnesium 1.8 mg/dL (1.6-2.6); Phosphorus 2.5 mg/dL (2.3-4.7); Sodium 137 mmol/L (136-145)
[2022-05-08] MEDS: PHOS-NAK 1 PKT PACK PO SCH ×2 (09:07→09:14)
[2022-05-08] MEDS: Magnesium 2 GM/50 ML(in water) 2 GM in Premix Bag 1 BAG IVPB SCH ×2 (09:08→09:14)
[2022-05-08] MEDS: Gabapentin 100 MG CAP PO SCH ×4 (09:09→19:41)
[2022-05-08] MEDS: Folic Acid 1 MG TAB PO SCH (09:14)
[2022-05-08] MEDS: Polyethylene Glycol 3350 17 GM Packet PO SCH (09:14)
[2022-05-08] MEDS: Senokot S 8.6-50 MG TAB PO SCH ×2 (09:14→19:42)
[2022-05-08] MEDS: Losartan 25 MG TAB PO SCH (09:14)
[2022-05-08] MEDS: Thiamine 100 MG TAB PO SCH (09:15)
[2022-05-08] MEDS: Atorvastatin Calcium 20 MG TAB PO SCH (17:57)
[2022-05-08] MEDS: Famotidine 20 MG TAB PO SCH (19:42)
[2022-05-08] MEDS: Donepezil HCl 5 MG TAB PO SCH (19:42)
[2022-05-08] MEDS: Melatonin 3 MG TAB PO SCH (19:42)
[2022-05-08] MEDS: Sertraline 25 MG TAB PO SCH (19:43)
[2022-05-08] MEDS: QUEtiapine 25 MG TAB PO SCH (19:43)
[2022-05-09] MEDS: Acetaminophen 325 MG TAB PO SCH ×4 (03:01→23:11)
[2022-05-09] MEDS: Acetaminophen/Codeine 30-300mg Tablet PO SCH ×3 (05:08→19:02)
[2022-05-09] MEDS: Senokot S 8.6-50 MG TAB PO SCH ×2 (09:37→22:53)
[2022-05-09] MEDS: Polyethylene Glycol 3350 17 GM Packet PO SCH (09:37)
[2022-05-09] MEDS: Losartan 25 MG TAB PO SCH (09:37)
[2022-05-09] MEDS: Thiamine 100 MG TAB PO SCH (09:37)
[2022-05-09] MEDS: Gabapentin 100 MG CAP PO SCH ×3 (09:37→22:53)
[2022-05-09] MEDS: Folic Acid 1 MG TAB PO SCH (09:37)
[2022-05-09] MEDS: Cyclobenzaprine 10 MG TAB PO PRN (14:05)
[2022-05-09] MEDS: Atorvastatin Calcium 20 MG TAB PO SCH (19:01)
[2022-05-09] MEDS: Donepezil HCl 5 MG TAB PO SCH (22:43)
[2022-05-09] MEDS: QUEtiapine 25 MG TAB PO SCH (22:53)
[2022-05-09] MEDS: Sertraline 25 MG TAB PO SCH (22:53)
[2022-05-09] MEDS: Famotidine 20 MG TAB PO SCH (22:53)
[2022-05-09] MEDS: Melatonin 3 MG TAB PO SCH (22:53)
[2022-05-10] MEDS: Acetaminophen/Codeine 30-300mg Tablet PO SCH ×4 (00:02→21:24)
[2022-05-10] MEDS: Acetaminophen 325 MG TAB PO SCH ×4 (04:48→21:46)
[2022-05-10] MEDS: Senokot S 8.6-50 MG TAB PO SCH ×2 (11:58→21:29)
[2022-05-10] MEDS: Polyethylene Glycol 3350 17 GM Packet PO SCH (11:58)
[2022-05-10] MEDS: Thiamine 100 MG TAB PO SCH (11:59)
[2022-05-10] MEDS: Gabapentin 100 MG CAP PO SCH ×3 (11:59→21:46)
[2022-05-10] MEDS: Losartan 25 MG TAB PO SCH (11:59)
[2022-05-10] MEDS: Folic Acid 1 MG TAB PO SCH (12:00)
[2022-05-10] MEDS: Cyclobenzaprine 10 MG TAB PO PRN (15:45)
[2022-05-10] MEDS: Atorvastatin Calcium 20 MG TAB PO SCH (15:45)
[2022-05-10] MEDS: Melatonin 3 MG TAB PO SCH (21:29)
[2022-05-10] MEDS: Donepezil HCl 5 MG TAB PO SCH (21:29)
[2022-05-10] MEDS: QUEtiapine 25 MG TAB PO SCH (21:29)
[2022-05-10] MEDS: Famotidine 20 MG TAB PO SCH (21:29)
[2022-05-10] MEDS: Sertraline 25 MG TAB PO SCH (21:29)
[2022-05-11] MEDS: Acetaminophen 325 MG TAB PO SCH ×4 (04:31→21:03)
[2022-05-11] MEDS: Acetaminophen/Codeine 30-300mg Tablet PO SCH ×4 (05:40→10:37)
[2022-05-11] MEDS: Gabapentin 100 MG CAP PO SCH ×3 (09:08→21:02)
[2022-05-11] MEDS: Cyclobenzaprine 10 MG TAB PO PRN (10:21)
[2022-05-11] MEDS: Senokot S 8.6-50 MG TAB PO SCH ×2 (10:29→21:02)
[2022-05-11] MEDS: Losartan 25 MG TAB PO SCH (10:29)
[2022-05-11] MEDS: traMADol HCl 50 MG TAB PO SCH ×3 (11:36→23:38)
[2022-05-11] MEDS: traMADol HCl 50 MG TAB PO PRN ×2 (11:36→17:48)
[2022-05-11] MEDS: Atorvastatin Calcium 20 MG TAB PO SCH (16:01)
[2022-05-11] MEDS: Folic Acid 1 MG TAB PO SCH (18:23)
[2022-05-11] MEDS: Polyethylene Glycol 3350 17 GM Packet PO SCH (18:23)
[2022-05-11] MEDS: Thiamine 100 MG TAB PO SCH (18:24)
[2022-05-11] MEDS: Donepezil HCl 5 MG TAB PO SCH (21:01)
[2022-05-11] MEDS: Melatonin 3 MG TAB PO SCH (21:02)
[2022-05-11] MEDS: Famotidine 20 MG TAB PO SCH (21:02)
[2022-05-11] MEDS: QUEtiapine 25 MG TAB PO SCH (21:02)
[2022-05-11] MEDS: Sertraline 25 MG TAB PO SCH (21:03)
[2022-05-12] MEDS: Acetaminophen 325 MG TAB PO SCH ×5 (04:16→21:37)
[2022-05-12] MEDS: traMADol HCl 50 MG TAB PO SCH ×5 (04:17→22:10)
[2022-05-12] MEDS: Gabapentin 100 MG CAP PO SCH ×4 (09:39→19:55)
[2022-05-12] MEDS: Senokot S 8.6-50 MG TAB PO SCH ×2 (09:39→19:56)
[2022-05-12] MEDS: Losartan 25 MG TAB PO SCH (09:42)
[2022-05-12] MEDS: Cyclobenzaprine 10 MG TAB PO PRN (13:18)
[2022-05-12] MEDS: traMADol HCl 50 MG TAB PO PRN (13:19)
[2022-05-12] MEDS: Folic Acid 1 MG TAB PO SCH (13:25)
[2022-05-12] MEDS: Thiamine 100 MG TAB PO SCH (13:26)
[2022-05-12] MEDS: Polyethylene Glycol 3350 17 GM Packet PO SCH (13:26)
[2022-05-12] MEDS: Atorvastatin Calcium 20 MG TAB PO SCH (19:21)
[2022-05-12] MEDS: Sertraline 25 MG TAB PO SCH (19:49)
[2022-05-12] MEDS: Donepezil HCl 5 MG TAB PO SCH (19:49)
[2022-05-12] MEDS: QUEtiapine 25 MG TAB PO SCH (19:49)
[2022-05-12] MEDS: Famotidine 20 MG TAB PO SCH (19:55)
[2022-05-12] MEDS: Melatonin 3 MG TAB PO SCH (19:56)
[2022-05-13] MEDS: Acetaminophen 325 MG TAB PO SCH ×2 (03:28→10:17)
[2022-05-13] MEDS: traMADol HCl 50 MG TAB PO SCH ×2 (04:40→10:20)
[2022-05-13 05:01] VITALS: TEMP 97.7
[2022-05-13] MEDS: Polyethylene Glycol 3350 17 GM Packet PO SCH (10:16)
[2022-05-13] MEDS: Folic Acid 1 MG TAB PO SCH (10:18)
[2022-05-13] MEDS: Senokot S 8.6-50 MG TAB PO SCH (10:18)
[2022-05-13] MEDS: Losartan 25 MG TAB PO SCH (10:18)
[2022-05-13] MEDS: Gabapentin 100 MG CAP PO SCH (10:19)
[2022-05-13] MEDS: Thiamine 100 MG TAB PO SCH (10:20)
[2022-05-13 12:36] VITALS: BP 95/65
== END 2022-05-13 13:49 | DRG 200 ==
LOC: ERS 07:37 → INTOOBSV 11:09 → ERHOLD 11:09 → SURG A 18:15 → OBSVTOIN 05-06 11:33
PROVIDERS: ADMIT Surgery; ATTEND Surgery
DX: S27.0XXA Traumatic pneumothorax, initial encounter (principal); S22.41XA Multiple fractures of ribs, right side, initial encounter for closed fracture; S42.151A Displaced fracture of neck of scapula, right shoulder, initial encounter for closed fracture; W18.30XA Fall on same level, unspecified, initial encounter; F03.90 Unspecified dementia, unspecified severity, without behavioral disturbance, psychotic disturbance, mood disturbance, and anxiety; I12.9 Hypertensive chronic kidney disease with stage 1 through stage 4 chronic kidney disease, or unspecified chronic kidney disease; E11.22 Type 2 diabetes mellitus with diabetic chronic kidney disease; E78.5 Hyperlipidemia, unspecified; I65.29 Occlusion and stenosis of unspecified carotid artery; E55.9 Vitamin D deficiency, unspecified; Z91.14 Patient's other noncompliance with medication regimen; Y92.129 Unspecified place in nursing home as the place of occurrence of the external cause; Z90.49 Acquired absence of other specified parts of digestive tract; Z98.890 Other specified postprocedural states; Z79.899 Other long term (current) drug therapy; Z79.4 Long term (current) use of insulin
CPT/HCPCS: 36415; 36416; 70450; 70498; 71045; 71260; 72125; 80048; 80053; 83690; 83735; 84100; 84484; 85025; 93005; 94760; 96374; G0378; G0390; J1650; J3010; J3475; U0002

== ENCOUNTER 2022-05-27 12:57 | Emergency (ER) | payer MEDICARE ==
[2022-05-27 14:01] LABS: #Eosinphils 0.4 thou/uL (0.0-0.7); #Lymphocytes 1.8 thou/uL (1.20-3.40); #Monocytes 0.7 thou/uL (0.11-0.59); #Neutrophils 8.9 thou/uL (1.40-6.50); %Basophils 0.2 % (0.0-1.0); %Lymphocytes 15.3 % (21.0-51.0); %Neutrophils 75.5 % (42.0-75.0); Hemoglobin 9.6 g/dL (12.0-16.0); Mean Corpuscular HGB CONC 31.4 g/dL (32.0-36.0); Mean Corpuscular Hemoglobin 30.1 pg (27.0-31.0); Mean Platelet Volume 6.6 fL (7.4-10.4); Platelet Count 304 10x3/uL (130-400); RBC Distribution Width 13.9 % (11.5-14.5); Red Blood Cell (RBC) Count 3.19 mill/uL (4.20-5.40); White Blood Cell (WBC) Count 11.7 10x3/uL (4.8-10.8)
[2022-05-27 14:30] LABS: ALT (SGPT) 10 U/L (8-55); AST (SGOT) 16 U/L (5-34); Albumin 3.3 g/dL (3.4-4.8); Alkaline Phosphatase 107 U/L (40-110); Anion Gap 11 mmol/L (10-20); BUN (Urea Nitrogen) 18 mg/dL (9.8-20.1); Bilirubin, Total 0.3 mg/dL (0.2-1.2); Calc. Creatinine Clearance 0 mL/min (70-130); Calcium 8.8 mg/dL (7.8-10.44); Carbon Dioxide 25 mmol/L (23-31); Chloride 104 mmol/L (98-107); Estimated GFR 37; Globulin 2.7 g/dL (2.4-3.5); Glucose 89 mg/dL (83-110); Potassium 3.9 mmol/L (3.5-5.1); Sodium 136 mmol/L (136-145)
[2022-05-27 15:11] LABS: Bacteria/HPF 4+ HPF (None Seen); Bilirubin Negative (Negative); Blood, Urine Negative (Negative); Clarity Turbid (Clear); Glucose, Urine (Dipstick) Normal (Negative); Ketone, Urine Negative (Negative); Leukocyte 75 Leu/uL (Negative); Nitrite Negative (Negative); Protein, Urine (Dipstick) Negative (Neg-Trace); RBC/HPF None Seen HPF (0-3); Specific Gravity, Urine 1.022 (1.002-1.036); Squamous Epithelial 0-3 HPF (0-3); Urobilinogen Normal mg/dL (Less than 2); pH, Urine 5.5 (5.0-9.0)
== END 2022-05-27 21:40 ==
LOC: ERS 12:57
DX: N39.0 Urinary tract infection, site not specified (principal); R41.82 Altered mental status, unspecified; D72.829 Elevated white blood cell count, unspecified; E11.9 Type 2 diabetes mellitus without complications; E78.00 Pure hypercholesterolemia, unspecified; I10 Essential (primary) hypertension; Z79.899 Other long term (current) drug therapy
CPT/HCPCS: 36415; 70450; 71045; 80053; 81003; 81015; 84484; 85025; 87077; 87086; 87186; 93005; 94760